=== PATIENT | male | born 2000 | race Caucasian/White ===

== ENCOUNTER 2022-02-16 18:41 | Emergency (ER) | payer BC, SELFPAY ==
--- NOTE | ~2022-02-16 | XR_ITS ---
EXAMINATION: XR chest 1V portable Exam Date/Time: 02/16/2022 19:15 CDT HISTORY: COVID + X 02/10,DIZZY,FATIGUE,NAUSEA Comparison: None available. RESULT: Lines, tubes, and devices: None. Lungs and pleura: Clear. Cardiomediastinal silhouette: Normal. Other: No acute osseous or upper abdominal finding. IMPRESSION: No acute cardiopulmonary process. Reviewed, dictated and finalized at location K.
[2022-02-16 18:45] VITALS: BP 120/67; PULSE 56; RESP 20; TEMP 37.1; O2SAT 100
--- NOTE | 2022-02-16 19:15 | ED.GENADULT ---
HPI - General Adult General Chief complaint: Dizziness Stated complaint: dizziness Time Seen by Provider: 02/16/22 19:02 Source: RN notes reviewed History of Present Illness HPI narrative: Patient presents emergency department from home for nausea. Patient states he was at work today when he began to feel nauseous like he is going to throw up states this was associated with a feeling of dizziness and fatigue. States that his dizziness is improved at this time but is still feeling nauseous as well as epigastric abdominal pain. He states he did test positive for COVID-19 with a home test on 02/10/2022. He denies any fevers or chills chest pain shortness of breath vomiting diarrhea or any other symptoms states he does not take any medications for symptom Related Data Allergies Allergy/AdvReac Type Severity Reaction Status Date / Time No Known Allergies Allergy Mild Verified 01/09/11 22:47 Review of Systems Review of Systems: Gen.: Denies fevers or chills, reports testing positive for COVID-19 Eyes: Denies eye pain or visual change ENT: Denies congestion Respiratory: Denies shortness of breath or cough CV: Denies chest pain or palpitations GI: reports epigastric abdominal pain and nausea denies vomiting or diarrhea Musculoskeletal: Denies back pain or muscle pain Neuro: Denies numbness, tingling, weakness or focal weakness reports intermittent dizziness Skin: Denies rash Except as documented, all other systems reviewed and negative [facility] Past Medical History Medical History (Updated 02/16/22 @ 21:23 by Marek Tucker DO) COVID-19 Social History Social History (Updated 02/16/22 @ 19:18 by Marek Tucker DO) Smoking status: Never smoker Exam Narrative: APPEARANCE: No acute distress, nontoxic, resting in bed EYES: EOMI HEENT: Normocephalic, atraumatic, OMM RESPIRATORY: No respiratory distress Clear to auscultation bilaterally with no rhonchi wheezing or rales. CARDIOVASCULAR: Regular rate and rhythm without murmurs rubs or gallops. ABDOMINAL: Soft, nondistended tender palpation epigastric and right upper quadrant left upper quadrant no tenderness right lower quadrant left lower quadrant no rebound or guarding MUSCULOSKELETAl: Moves all extremities. No clubbing, cyanosis or edema. NEURO: Awake and alert. Following commands, speech normal, no focal deficits SKIN:: Warm, dry. No rashes lesions or abrasions PSYCHIATRIC: Normal affect/mood, Course Course Emergency Course: Patient states that they are feeling much better at this time. States abdominal pain has resolved. States that his stomach is rumbling and he is ready to eat repeat abdominal exam shows the patient's abdomen to be soft and nontender. Discussed with patient results of workup and diagnosis. Discussed need for follow-up with primary care physician, reasons to return to the emergency department in proper use of medication. Patient understands and agrees to current treatment plan Vital Signs Vital signs: Vital Signs Temperature 98.8 F 02/16/22 18:45 Pulse Rate 56 L 02/16/22 18:45 Respiratory Rate 20 02/16/22 18:45 Blood Pressure 120/67 02/16/22 18:45 Pulse Oximetry 100 02/16/22 18:45 Temperature 98.8 F 02/16/22 18:45 Pulse Rate 74 02/16/22 21:00 Respiratory Rate 20 02/16/22 18:45 Blood Pressure 110/74 02/16/22 21:00 Pulse Oximetry 100 02/16/22 18:45 Medical Decision Making Vital Signs Vital Signs: Vital Signs Temperature 98.8 F 02/16/22 18:45 Pulse Rate 56 L 02/16/22 18:45 Respiratory Rate 20 02/16/22 18:45 Blood Pressure 120/67 02/16/22 18:45 Pulse Oximetry 100 02/16/22 18:45 Temperature 98.8 F 02/16/22 18:45 Pulse Rate 74 02/16/22 21:00 Respiratory Rate 20 02/16/22 18:45 Blood Pressure 110/74 02/16/22 21:00 Pulse Oximetry 100 02/16/22 18:45 Lab Data Result diagrams: 02/16/22 19:31 02/16/22 19:31 Labs: Lab Results 02/16/22
[2022-02-16] MEDS: KETOROLAC 30 MG/ML VIAL (*BKC) IV PUSH (19:31)
[2022-02-16] MEDS: FAMOTIDINE 20 MG/2 ML VIAL IV PUSH (19:32)
[2022-02-16] MEDS: ONDANSETRON INJ 4 MG/2 ML VIAL IV PUSH (19:32)
--- NOTE | 2022-02-16 19:36 | PC.NURSE ---
pt unable to provide urine sample at this time and is declining straight cath.
[2022-02-16 19:42] LABS: Basophils Percent Auto 0.6 % (0.2-1.2); Eosinophils Percent Auto 0.6 % (0-4.4); Hematocrit 47.2 % (42.0-52.0); Hemoglobin 16.5 g/dL (14.0-18.0); Immature Granulocyte Absolute 0.01 K/mm3 (0.00-0.031); Immature Granulocyte Percent A 0.3 % (0-0.5); Lymphocytes Absolute Auto 1.58 K/mm3 (0.9-3.2); Lymphocytes Percent Auto 43.9 % (18.3-44.2); Mean Corpuscular Hemoglobin 31.1 pg (26-34); Mean Corpuscular Volume 88.9 fl (80-100); Mean Platelet Volume 10.8 fl (7.4-10.4); Monocytes Absolute Auto 0.5 K/mm3 (0.1-0.6); Monocytes Percent Auto 13.6 % (2.6-8.5); Neutrophils Absolute Auto 1.5 K/mm3 (1.3-6.7); Platelet Count Result 169 k/mm3 (150-375); Red Blood Count 5.31 M/mm3 (4.6-6.20); Red Cell Distribution Width 12.6 % (11.5-14.5); White Blood Count 3.6 K/mm3 (4.5-10.0)
[2022-02-16 19:56] LABS: Alanine Aminotransferase 16 U/L (6-50); Albumin Level 4.9 g/dL (3.7-5.6); Alkaline Phosphatase 75 U/L (58-237); Anion Gap 9 mmol/L (8-16); Aspartate Amino Transferase 31 U/L (17-59); Bilirubin,Total 0.7 mg/dL (0.2-1.3); Blood Urea Nitrogen 12 mg/dL (8-21); Calcium 9.5 mg/dL (8.9-10.7); Carbon Dioxide 24 mmol/L (22-30); Chloride 105 mmol/L (98-107); Estimated CRCL calculation 137 ml/min; Estimated Glomerular Filt Rate > 60; Glucose 98 mg/dL (65-110); Lipase 66 U/L (23-300); Potassium 4.1 mmol/L (3.4-5.0); Sodium 138 mmol/L (134-143)
[2022-02-16 20:29] LABS: Appearance Urine Clear (Clear); Bilirubin Urine Negative (Negative); Blood Urine Negative (Negative); Color Urine Yellow (Yellow); Glucose Urine UA Negative (Negative); Ketones Urine Trace mg/dL (Negative); Leukocyte Esterase Ur Negative LEU/UL (Negative); Nitrate Urine Negative (Negative); Protein Urine Negative (Negative); Specific Grav Ur 1.015 (1.001-1.035); Urobilinogen Urine 0.2 mg/dL (<2.0); pH Urine 5.5 (5.0-9.0)
[2022-02-16 20:32] LABS: Mucus Urine Moderate /lpf; RBC Urine 0-2 /hpf (0-2); WBC Urine 0-3 /hpf
[2022-02-16 20:33] LABS: Add Urine Microscopic? NO
[2022-02-16 20:57] VITALS: BP 120/82; PULSE 56
[2022-02-16 20:59] VITALS: BP 113/82; PULSE 64
[2022-02-16 21:00] VITALS: BP 110/74; PULSE 74
[2022-02-16 21:40] VITALS: BP 110/74; RESP 20; O2SAT 98
== END 2022-02-16 21:41 | disposition home or self-care (01) ==
PROVIDERS: Emergency Provider Emergency Medicine; PCP Pediatrics
DX: U07.1 COVID-19 (principal); R10.13 Epigastric pain
CPT/HCPCS: 36415; 71045; 80053; 81003; 83690; 85025; 96374; 96375; 99284; J1885; J2405

== ENCOUNTER 2022-10-20 10:52 | Emergency (ER) | payer BC, SELFPAY ==
--- NOTE | 2022-10-20 10:56 | ED.UPPEXIN ---
HPI - Extremity Injury (Upper) General Chief Complaint: Wound/Laceration Stated Complaint: rt middle finger injury Time Seen by Provider: 10/20/22 10:56 Source: patient and RN notes reviewed History of Present Illness HPI narrative: Patient is a 22-year-old male who presents to urgent care with complaints of a laceration to the right middle finger. Patient states that he cut it on a knife yesterday around 12:00 p.m.. Patient has been cleaning and using a Band-Aid. Patient states that he is up-to-date on tetanus vaccination as far as he is aware. No other acute complaints. No acute distress noted. Patient aware of the plan of care. Some parts of this dictation were generated by voice recognition software and may contain typographical and/or grammatical inaccuracies. Related Data Home Medications Medication Instructions Recorded Confirmed No Home Medications 10/20/22 10/20/22 Allergies Allergy/AdvReac Type Severity Reaction Status Date / Time No Known Allergies Allergy Mild Verified 10/20/22 11:02 Review of Systems Review of Systems: CONSTITUTIONAL: Denies fever, chills, or sweats. EYES: Denies visual changes, redness, or discharge. ENT: Denies rhinorrhea, congestion, sore throat, or otalgia. CARDIOVASCULAR: Denies chest pain, palpitations, or edema. RESPIRATORY: Denies cough or dyspnea. GASTROINTESTINAL: Denies abdominal pain, nausea, vomiting, or diarrhea. GENITOURINARY: Denies dysuria or hematuria. SKIN: Reports a laceration to the right middle finger MUSCULOSKELETAL: Denies back pain, joint pain, or myalgia. NEUROLOGIC: Denies headache, numbness, or weakness. All other systems reviewed are negative, except as documented in HPI. PMFSH Past Medical History Medical History COVID-19 Social History Social History Smoking status: Never smoker Comments At the time of my signature, I reviewed and agree with the nursing past medical, surgical, social, and family history. There is no relevant family history pertinent to the patient complaint. Exam Narrative: GENERAL: This is a well-nourished, well-developed patient, in no apparent distress. HEAD: normocephalic, atraumatic. EYES: PERRL. Sclera clear/white. Vision is grossly intact. EARS: External ears normal NOSE: External nose normal with no obvious nasal discharge, nares without redness, no rhinorrhea. THROAT: Mucous membranes moist NECK: Neck supple SKIN: 1.5 cm linear superficial laceration to the tuft of the right middle digit. Warm, intact with no suspicious lesions or rash, good texture and turgor. NEURO: awake, alert, and oriented to person, place and time. There were no obvious focal neurologic abnormalities. EXTREMITIES: No clubbing, cyanosis, or edema. Course Course Level of Care: Express Care Visit Vital Signs Vital signs: Vital Signs Temperature 99.1 F 10/20/22 11:07 Pulse Rate 70 10/20/22 11:07 Respiratory Rate 16 10/20/22 11:07 Blood Pressure 118/70 10/20/22 11:07 Pulse Oximetry 100 10/20/22 11:07 Temperature 99.1 F 10/20/22 11:07 Pulse Rate 70 10/20/22 11:07 Respiratory Rate 16 10/20/22 11:07 Blood Pressure 118/70 10/20/22 11:07 Pulse Oximetry 100 10/20/22 11:07 Reviewed MDM - Extremity Injury (Upper) MDM Narrative Medical decision making narrative: Advised patient to keep the wound clean with plain dial soap and water. Keep the wound covered especially if at risk of being soiled. May use Neosporin. Considering the wound has been open for approximately 24 hours, it cannot be closed. Where the foam metal splint for protection. Be aware signs and symptoms of infection such as redness, swelling, drainage from the area. Follow-up with your PCP within 2-5 days or for worsening symptoms or failure to improve. Patient did not wish to have Dermabond placed to the laceration. Differential
[2022-10-20 11:07] VITALS: BP 118/70; PULSE 70; RESP 16; TEMP 37.3; O2SAT 100
== END 2022-10-20 11:45 | disposition home or self-care (01) ==
PROVIDERS: Emergency Provider Nurse Practitioner Family
DX: S61.212A Laceration without foreign body of right middle finger without damage to nail, initial encounter (principal); W26.0XXA Contact with knife, initial encounter
CPT/HCPCS: 29130; 99212; G0463

== ENCOUNTER 2022-12-04 10:57 | Emergency (ER) | payer BC, SELFPAY ==
--- NOTE | ~2022-12-04 | XR_ITS ---
EXAMINATION: XR hip RT 2V w AP pelvis INDICATION: Right hip pain TECHNIQUE: AP view of the pelvis and two views of the right hip are obtained. COMPARISON: None available FINDINGS: Bone alignment is normal. There is no fracture. There are phleboliths of the left pelvis. IMPRESSION: 1. No acute osseous abnormality. Reviewed, dictated and finalized at location A.
--- NOTE | 2022-12-04 11:13 | ED.LOWEXIN ---
HPI - Extremity Injury (Lower) General Chief Complaint: Extremity Injury, Lower Stated Complaint: right hip pain Time Seen by Provider: 12/04/22 11:02 History of Present Illness HPI Narrative: 22-year-old male reports for evaluation of right hip and glutes pain for the past 4 months. Patient states the pain is worse with rotation of his torso, laying on his right side, and certain movements cause the pain to trigger. States the pain is sharp and extends into hamstrings, and anterior lateral aspect of his thigh. Patient denies inciting injury or trauma other than he can recall throwing a heavy trash bag over his shoulder using his right leg a support which may have been the start of his symptoms. He states he was evaluated by an urgent care about 1 to 2 months ago, had x-rays taken but never received a call back regarding the results of the x-rays. He denies fever, bodies, chills, back pain, IV drug use. Related Data Allergies Allergy/AdvReac Type Severity Reaction Status Date / Time No Known Allergies Allergy Mild Verified 12/04/22 11:33 Review of Systems Review of Systems: CONSTITUTIONAL: Denies fever, chills EYES: Denies visual changes, redness, or discharge. ENT: Denies rhinorrhea, congestion, sore throat, or otalgia. CARDIOVASCULAR: Denies chest pain, palpitations, or edema. RESPIRATORY: Denies cough or dyspnea. GASTROINTESTINAL: Denies abdominal pain, nausea, vomiting, or diarrhea. GENITOURINARY: Denies dysuria or hematuria. SKIN: Denies rash or itching. MUSCULOSKELETAL: See HPI NEUROLOGIC: Denies headache, numbness, dizziness, or weakness. PSYCHIATRIC: Denies anxiety or depression. PMFSH Past Medical History Medical History COVID-19 Social History Social History Smoking status: Never smoker Exam Narrative: GENERAL: Well-appearing, well-nourished, and in no acute distress. Patient resting comfortably in exam bed. He is pleasant and conversational. HEAD: Normocephalic, atraumatic. NECK: Supple. CHEST: Clear to auscultation. No respiratory distress. No wheezes rales or rhonchi HEART: Regular rate and rhythm. No murmur heard. Normal peripheral pulses. EXTREMITIES: No midline vertebral spinous tenderness, step-offs or deformities. Tenderness over the right piriformis. No tenderness to ileum or remaining pelvis. No tenderness to proximal humerus. Full range of motion of hip. Strength 5 out of 5 in lower extremities. No saddle anesthesia. Sensation intact. Patient ambulatory without ataxia. No overlying skin changes SKIN: Warm, dry, no rash. NEURO: No focal deficits. Alert and oriented x3. PSYCH: Normal mood and affect. MDM - Extremity Injury (Lower) MDM Narrative Medical decision making narrative: 22-year-old male reports for evaluation of right hip pain for the past 4 months. Exam reveals tenderness over the right piriformis. He is neurovascularly intact and ambulatory on exam. No red flag signs. X-rays of the hip obtained without acute osseous abnormality. Patient received Flexeril, Tylenol and ibuprofen with improvement in pain. His symptoms are consistent with piriformis syndrome. Advised patient to follow-up with primary care provider within the following 3 days for reevaluation. Referrals provided. Flexeril and naproxen sent to pharmacy. Strict ED return precautions provided. Patient agrees to the plan and verbalizes understanding. Vitals remained stable. He is discharged in stable condition. Medical Records Attestation: I reviewed the patient's medical records. Imaging Data Attestation: I personally reviewed and interpreted this imaging study as follows: Radiologist's impression: Impressions Hip/Pelvis X-Ray 12/04/22 11:57 IMPRESSION: 1. No acute osseous abnormality. Discharge Plan Discharge Clinical Impression: Piriformis syndrome Qualifiers: Lateralit
[2022-12-04] MEDS: CYCLOBENZAPRINE HCL 10 MG TABLET PO (11:30)
[2022-12-04] MEDS: ACETAMINOPHEN 500 MG TABLET 1000 MG PO (11:30)
[2022-12-04] MEDS: IBUPROFEN 600 MG TABLET PO (11:30)
--- NOTE | 2022-12-04 11:34 | PC.NURSE ---
Patient off unit to Radiology.
== END 2022-12-04 12:39 | disposition home or self-care (01) ==
PROVIDERS: Emergency Provider Physician Assistant
DX: G57.01 Lesion of sciatic nerve, right lower limb (principal)
CPT/HCPCS: 73502; 99283; A9270

== ENCOUNTER 2023-03-30 14:28 | Emergency (ER) | payer OTHER, BC, SELFPAY ==
--- NOTE | ~2023-03-30 | XR_ITS ---
EXAMINATION: XR finger 4th LT min 2V DATE: 03/30/2023 14:49 INDICATION: Post traumatic left fourth digit pain TECHNIQUE: Dorsal palmar, lateral and 2 oblique views of the left fourth digit were obtained COMPARISON: None FINDINGS: There is soft tissue swelling about the fourth distal phalanx with small amount of lucent gas underly ing the elevated nail consistent with a likely nailbed injury. Bone alignment is normal. No fracture. Joint spaces are normal. IMPRESSION: 1. Likely nailbed injury at the left fourth distal phalanx with no osseous abnormality. Reviewed, dictated and finalized at location A. IMPRESSION: 1. Likely nailbed injury at the left fourth distal phalanx with no osseous abno rmality.
[2023-03-30 14:29] VITALS: BP 110/56; PULSE 73; RESP 16; TEMP 37.1; O2SAT 100
[2023-03-30] MEDS: LIDOCAINE HCL 1% LOCAL INJ 10 ML VIAL INFILTRATE (16:22)
--- NOTE | 2023-03-30 16:28 | ED.GENADULT ---
HPI - General Adult General Chief complaint: Wound/Laceration Stated complaint: L 4TH FINGER INJURY Time Seen by Provider: 03/30/23 15:32 History of Present Illness HPI narrative: 22-year-old male presented the ED for evaluation of an injury to his left fourth finger. Patient was moving a beer keg and it got caught injuring his fingernail. Related Data Allergies Allergy/AdvReac Type Severity Reaction Status Date / Time No Known Allergies Allergy Mild Verified 03/30/23 15:25 Review of Systems Review of Systems: All systems reviewed & are unremarkable except as noted in HPI and below PMFSH Past Medical History Medical History COVID-19 Social History Social History Smoking status: Never smoker Exam Narrative: APPEARANCE: Well appearing, no pain, no distress, well-nourished. HEAD: normocephalic, atraumatic. EYES: PERRLA/EOMI, conjunctivae clear. NOSE: Normal no drainage EARS:TMS clear with good light reflex. THROAT: Pharynx clear, no exudate. NECK: Supple. No adenopathy, no masses. RESPIRATORY: Airway patent, respirations nonlabored. Clear to auscultation bilaterally, no rales, rhonchi, wheezing. CARDIOVASCULAR: Regular rate and rhythm without murmurs rubs or gallops. ABDOMINAL: Soft, nontender, nondistended, normal bowel sounds MUSCULOSKELETAL: Avulsion of the fingernail of the left fourth finger NEURO: Alert. Cranial nerves II through XII intact. Good gait. Good coordination SKIN: Warm, dry. Normal Color Course Course Emergency Course: 22-year-old male presented emergency department for evaluation of avulsion of his fingernail. Laceration and finger avulsion were repaired as described in the procedure note. X-ray showed no acute fracture or dislocation. Patient was updated on the results of the work-up and importance on follow-up and treatment plan for home. All questions and concerns were addressed Vital Signs Vital signs: Vital Signs Temperature 98.7 F 03/30/23 14:29 Pulse Rate 73 03/30/23 14:29 Respiratory Rate 16 03/30/23 14:29 Blood Pressure 110/56 L 03/30/23 14:29 Pulse Oximetry 100 03/30/23 14:29 Temperature 98.7 F 03/30/23 14:29 Pulse Rate 62 03/30/23 17:20 Respiratory Rate 16 03/30/23 14:29 Blood Pressure 108/57 L 03/30/23 17:20 Pulse Oximetry 99 03/30/23 17:20 Procedures Laceration Laceration 1: Site: upper extremity Side (If applicable): left Description: irregular Depth: simple, single layer Amount of anesthesia used (mL): 5 Pre-repair: wound explored, irrigated, irrigated extensively and minor debridement ====== Skin Level ====== Skin layer closed with: vicryl Size (cm): 4-0 Number of sutures: 2 Technique: simple, interrupted and other (2 sutures were used to reattach the patient's fingernail.) ====== Subcutaneous Layer ====== ====== Muscle Layer ====== ====== Tendon Layer ====== Medical Decision Making Vital Signs Vital Signs: Vital Signs Temperature 98.7 F 03/30/23 14:29 Pulse Rate 73 03/30/23 14:29 Respiratory Rate 16 03/30/23 14:29 Blood Pressure 110/56 L 03/30/23 14:29 Pulse Oximetry 100 03/30/23 14:29 Temperature 98.7 F 03/30/23 14:29 Pulse Rate 62 03/30/23 17:20 Respiratory Rate 16 03/30/23 14:29 Blood Pressure 108/57 L 03/30/23 17:20 Pulse Oximetry 99 03/30/23 17:20 Imaging Data Radiologist's impression: Impressions Finger X-Ray 03/30/23 14:50 IMPRESSION: 1. Likely nailbed injury at the left fourth distal phalanx with no osseous abnormality. Discharge Plan Discharge Clinical Impression: Avulsed fingernail Patient Disposition: Home, Self-Care Condition: Stable Instructions: Antibiotic Form, Care For Your Stitches (ED), [facility]
[2023-03-30] MEDS: CEPHALEXIN 500 MG CAPSULE PO (17:02)
[2023-03-30 17:20] VITALS: BP 108/57; PULSE 62; O2SAT 99
== END 2023-03-30 17:21 | disposition home or self-care (01) ==
PROVIDERS: Emergency Provider Emergency Medicine
DX: S61.313A Laceration without foreign body of left middle finger with damage to nail, initial encounter (principal); W45.8XXA Other foreign body or object entering through skin, initial encounter
CPT/HCPCS: 12002; 73140; 99283; A9270

== ENCOUNTER 2023-09-26 17:24 | Emergency (ER) | payer BC, SELFPAY ==
[2023-09-26 17:27] VITALS: BP 121/101; PULSE 102; RESP 20; TEMP 36.6; O2SAT 100
[2023-09-26 19:30] LABS: Influenza A QL RT-PCR Positive (Negative); Influenza B QL RT-PCR Negative (Negative); RSV RNA, RT-PCR Negative (Negative); SARS-CoV-2 RNA PCR Negative (Negative)
[2023-09-26 20:20] VITALS: BP 141/86; PULSE 81; RESP 15; TEMP 36.9; O2SAT 100
--- NOTE | 2023-09-26 20:48 | ED.GENADULT ---
[facility] - General Adult General Chief complaint: Nausea/Vomiting/Diarrhea Stated complaint: nausea, vomiting Time Seen by Provider: 09/26/23 20:16 Source: patient Mode of arrival: ambulatory Limitations: no limitations History of Present Illness HPI narrative: This is a 23-year-old male who presents to the ED with chief complaint of URI symptoms and diarrhea for the past 4 days. Reports his sister was positive for flu earlier this week and he started feeling similar symptoms. Endorses a little bit of lightheadedness that has since resolved. States he has had fevers in the 99F range. Denies syncope, chest pain, cough, vomiting, nausea, abdominal pain. Related Data Allergies Allergy/AdvReac Type Severity Reaction Status Date / Time No Known Allergies Allergy Mild Verified 03/30/23 15:25 Review of Systems Review of Systems: All systems as dictated in [facility] Past Medical History Medical History COVID-19 Social History Social History Smoking status: Never smoker Exam Narrative: GENERAL: Well-appearing, well-nourished, and in no acute distress. HEAD: Normocephalic, atraumatic. EYES: PERRLA and EOMI. ENT: Nares clear, no rhinorrhea or epistaxis. Mucous membranes moist. Oropharynx without tonsillar hypertrophy exudate or other lesions. NECK: Supple. No adenopathy or masses. CHEST: No respiratory distress. Clear to auscultation. No wheezes rales or rhonchi HEART: Regular rate and rhythm. No murmur heard. Normal peripheral pulses. ABDOMEN: Soft, nontender, nondistended, normal active bowel sounds. MSK: Normal range of motion. No edema. SKIN: Warm, dry, no rash. NEURO: Alert and oriented x3. No focal deficits. PSYCH: Normal mood and affect. Course Vital Signs Vital signs: Vital Signs Temperature 97.8 F 09/26/23 17:27 Pulse Rate 102 H 09/26/23 17:27 Respiratory Rate 20 09/26/23 17:27 Blood Pressure 121/101 H 09/26/23 17:27 Pulse Oximetry 100 09/26/23 17:27 Oxygen Delivery Room Air 09/26/23 17:27 Temperature 98.5 F 09/26/23 20:20 Pulse Rate 81 09/26/23 20:20 Respiratory Rate 15 09/26/23 20:20 Blood Pressure 141/86 H 09/26/23 20:20 Pulse Oximetry 100 09/26/23 20:20 Oxygen Delivery Room Air 09/26/23 17:27 Medical Decision Making MDM Narrative Medical decision making narrative: This is a 23-year-old male who presents to the ED with chief complaint your eye symptoms and diarrhea for the past few days. Family member positive for flu. Vitals are normal. His exam is benign. Swabs are positive for flu A as well. He is not toxic appearing on exam. Symptoms are consistent with viral syndrome. Pt will be discharged in stable condition. Return precautions given and supportive measures discussed. Pt is understanding and agreeable with plan for discharge and follow-up with PCP. Vital Signs Vital Signs: Vital Signs Temperature 97.8 F 09/26/23 17:27 Pulse Rate 102 H 09/26/23 17:27 Respiratory Rate 20 09/26/23 17:27 Blood Pressure 121/101 H 09/26/23 17:27 Pulse Oximetry 100 09/26/23 17:27 Oxygen Delivery Room Air 09/26/23 17:27 Temperature 98.5 F 09/26/23 20:20 Pulse Rate 81 09/26/23 20:20 Respiratory Rate 15 09/26/23 20:20 Blood Pressure 141/86 H 09/26/23 20:20 Pulse Oximetry 100 09/26/23 20:20 Oxygen Delivery Room Air 09/26/23 17:27 Lab Data Labs: Lab Results 09/26/23 Range/Units 17:35 Influenza A (RT-PCR) Positive A (Negative) Influenza B (RT-PCR) Negative (Negative) RSV (RT-PCR) Negative (Negative) SARS-CoV-2 RNA (RT-PCR) Negative (Negative) Discharge Plan Discharge Clinical Impression: Influenza A Patient Disposition: Home, Self-Care Condition: Stable Instructions: Antibiotic Form, Viral Syndrome (ED) Additional Instructions: Your exam today
== END 2023-09-26 21:29 | disposition home or self-care (01) ==
PROVIDERS: Physician Assistant; Emergency Provider Physician Assistant
DX: J10.1 Influenza due to other identified influenza virus with other respiratory manifestations (principal); Z20.822 Contact with and (suspected) exposure to COVID-19
CPT/HCPCS: 87637; 99283

== ENCOUNTER 2023-09-27 20:25 | Emergency (ER) | payer BC, SELFPAY ==
--- NOTE | ~2023-09-27 | XR_ITS ---
Portable chest x-ray Comparison: 02/16/2022 Clinical History: Cough Findings: Lungs are clear, without focal consolidation or pleural effusion. Cardiomediastinal silho uette is stable. Bones and soft tissues are unremarkable. Impression: Normal chest. Reviewed, dictated and finalized at [facility]. ICAL SOCIAL WORK THERAPIST Impression: Normal chest.
[2023-09-27 20:28] VITALS: BP 122/66; PULSE 74; RESP 15; TEMP 36.8; O2SAT 100
[2023-09-27 23:22] VITALS: BP 126/81; PULSE 55; RESP 19; O2SAT 100
--- NOTE | 2023-09-27 23:28 | ED.GENADULT ---
HPI - General Adult General Chief complaint: Nausea/Vomiting/Diarrhea <Prince Quinn PA-C - Last Filed: 09/28/23 01:46> Stated complaint: dehydrated <Prince Quinn PA-C - Last Filed: 09/28/23 01:46> Time Seen by Provider: 09/27/23 23:19 <Prince uQinn PA-C - Last Filed: 09/28/23 01:46> Source: patient <Prince Quinn PA-C - Last Filed: 09/28/23 01:46> Mode of arrival: ambulatory <MODESTA Sexton Last Filed: 09/28/23 01:46> Limitations: no limitations <Prince Quinn PA-C - Last Filed: 09/28/23 01:46> History of Present Illness HPI narrative: This is a 23-year-old male who presents to the ED with chief complaint of worsening flu-like symptoms. He was seen by myself yesterday and diagnosed with flu a which his family member recently had. Patient reports that he is having increasing productive cough with green sputum. Reports feeling nauseous and having increasing diarrhea. Reports feeling very lightheaded and that he might pass out. Denies full syncopal event. he has been trying to drink water but feels like it goes right through him.. Reports numerous watery stool but denies any GI bleeding symptoms. <Prince Quinn PA-C - Last Filed: 09/28/23 01:46> Related Data Allergies/adverse reactions: Allergies Allergy/AdvReac Type Severity Reaction Status Date / Time No Known Allergies Allergy Mild Verified 09/27/23 20:31 <Prince Quinn PA-C - Last Filed: 09/28/23 01:46> Review of Systems Review of Systems: All systems as dictated in HPI <Prince Quinn PA-C - Last Filed: 09/28/23 01:46> PMF Past Medical History Medical History: Medical History COVID-19 <Prince Quinn PA-C - Last Filed: 09/28/23 01:46> Social History Social History: Social History Smoking status: Never smoker <Prince Quinn PA-C - Last Filed: 09/28/23 01:46> Exam Narrative: GENERAL: Well-appearing, well-nourished, and in no acute distress. HEAD: Normocephalic, atraumatic. EYES: PERRLA and EOMI. ENT: Nares clear, no rhinorrhea or epistaxis. Mucous membranes moist. Oropharynx without tonsillar hypertrophy exudate or other lesions. NECK: Supple. No adenopathy or masses. CHEST: No respiratory distress. Clear to auscultation. No wheezes rales or rhonchi HEART: Regular rate and rhythm. No murmur heard. Normal peripheral pulses. ABDOMEN: Soft, nontender, nondistended, normal active bowel sounds. MSK: Normal range of motion. No edema. SKIN: Warm, dry, no rash. NEURO: Alert and oriented x3. No focal deficits. PSYCH: Normal mood and affect. <Prince Quinn PA-C - Last Filed: 09/28/23 01:46> Course DERMATOLOGIST MANAGING PARTNER/PA Physician Supervision For this patient encounter, I reviewed the DERMATOLOGIST MANAGING PARTNER or PA documentation, treatment plan, and medical decision making and I had [id number] time with this patient. I performed all aspects of the MDM as documented. <Gibson Salas DO - Last Filed: 09/28/23 02:11> Vital Signs Vital signs: Vital Signs Temperature 98.3 F 09/27/23 20:28 Pulse Rate 74 09/27/23 20:28 Respiratory Rate 15 09/27/23 20:28 Blood Pressure 122/66 09/27/23 20:28 Pulse Oximetry 100 09/27/23 20:28 Oxygen Delivery Room Air 09/27/23 20:28 Temperature 98.3 F 09/27/23 20:28 Pulse Rate 76 09/28/23 01:10 Respiratory Rate 12 09/28/23 01:10 Blood Pressure 121/77 09/28/23 01:10 Pulse Oximetry 99 09/28/23 01:10 Oxygen Delivery Room Air 09/27/23 20:28 <Prince Quinn PA-C - Last Filed: 09/28/23 01:46> Vital Signs Temperature 98.3 F 09/27/23 20:28 Pulse Rate 74 09/27/23 20:28 Respiratory Rate 15 09/27/23 20:28 Blood Pressure 122/66 09/27/23 20:28 Pulse Oximetry 100 09/27/23 20:28 Oxygen Delivery Room Air 09/27/23 20:28 Temperature 98.3 F 09/27/23 20:28 Pulse Rate 76
--- NOTE | 2023-09-27 23:31 | ECG_ITS ---
Measurements Intervals [place] Rate: 53 P: 62 AK: 133 QRS: 79 QRSD: 88 T: 60 QT: 431 QTc: 408 Interpretive Statements SINUS BRADYCARDIA POSSIBLE LEFT ATRIAL ENLARGEMENT [-0.1mV P WAVE IN V1/V2] POSSIBLE RIGHT VENTRICULAR CONDUCTION DELAY [RSR (QR) IN V1/V2] ABNORMAL ECG NO PREVIOUS ECG AVAILABLE FOR COMPARISON Electronically Signed On 09-28-2023 12:38:29 REFERENCE ASSISTANT by Albert La M.D.
[2023-09-27 23:33] LABS: Basophils Percent Auto 0.5 % (0.2-1.2); Eosinophils Percent Auto 0.5 % (0-4.4); Hemoglobin 15.9 g/dL (14.0-18.0); Lymphocytes Absolute Auto 2.05 K/mm3 (0.9-3.2); Lymphocytes Percent Auto 51.8 % (18.3-44.2); Mean Corpuscular HGB Conc 34.6 g/dl (32-36); Mean Corpuscular Hemoglobin 31.3 pg (26-34); Mean Corpuscular Volume 90.6 fl (80-100); Mean Platelet Volume 10.3 fl (7.4-10.4); Monocytes Absolute Auto 0.5 K/mm3 (0.1-0.6); Monocytes Percent Auto 12.9 % (2.6-8.5); Neutrophils Absolute Auto 1.4 K/mm3 (1.3-6.7); Neutrophils Percent Auto 34.3 % (45.5-73.1); Platelet Count Result 208 k/mm3 (150-375); Red Blood Count 5.08 M/mm3 (4.6-6.20); Red Cell Distribution Width 12.5 % (11.5-14.5)
[2023-09-27 23:44] LABS: Alanine Aminotransferase 77 U/L (6-50); Albumin Level 4.4 g/dL (3.5-5.1); Alkaline Phosphatase 77 U/L (38-126); Anion Gap 7 mmol/L (8-16); Aspartate Amino Transferase 104 U/L (17-59); Bilirubin,Total 0.5 mg/dL (0.2-1.3); Blood Urea Nitrogen 14 mg/dL (9-20); Calcium 9.5 mg/dL (8.4-10.2); Carbon Dioxide 26 mmol/L (22-30); Chloride 105 mmol/L (98-107); Estimated CRCL calculation 136 ml/min; Estimated Glomerular Filt Rate > 60; Glucose 98 mg/dL (65-110); Lipase 128 U/L (23-300); Potassium 4.2 mmol/L (3.4-5.0); Sodium 138 mmol/L (137-145)
[2023-09-28] MEDS: SODIUM CHLORIDE 0.9% IV 1,000 ML 999 ML IV CONT (00:01)
[2023-09-28] MEDS: ONDANSETRON INJ 4 MG/2 ML VIAL IV PUSH (00:01)
[2023-09-28 00:44] LABS: Appearance Urine Clear (Clear); Bilirubin Urine Negative (Negative); Blood Urine Negative (Negative); Color Urine Yellow (Yellow); Glucose Urine UA Negative (Negative); Ketones Urine 1+ mg/dL (Negative); Leukocyte Esterase Ur Negative LEU/UL (Negative); Nitrate Urine Negative (Negative); Protein Urine Negative (Negative); Specific Grav Ur 1.024 (1.001-1.035); pH Urine 6.5 (5.0-9.0)
[2023-09-28 00:54] LABS: Add Urine Microscopic? YES
[2023-09-28 01:10] VITALS: BP 121/77; PULSE 76; RESP 12; O2SAT 99
== END 2023-09-28 01:10 | disposition home or self-care (01) ==
PROVIDERS: Student in an Organized Health Care Education/Training Program; Emergency Provider Physician Assistant
DX: J10.00 Influenza due to other identified influenza virus with unspecified type of pneumonia (principal); Z86.16 Personal history of COVID-19
CPT/HCPCS: 36415; 71045; 80053; 81001; 83690; 85025; 93005; 96361; 96374; 99284; J2405; J7030

== ENCOUNTER 2024-03-13 08:25 | Emergency (ER) | payer BC, SELFPAY ==
--- NOTE | 2024-03-13 08:27 | ED.SKABFB ---
HPI - Skin/Abscess/Foreign Bdy General Chief complaint: Skin/Abscess/Foreign Body Stated complaint: INSECT BITES Time Seen by Provider: 03/13/24 08:26 Source: patient Mode of arrival: ambulatory Limitations: no limitations History of Present Illness HPI narrative: Major is a 23-year-old male patient presenting to the clinic today with complaints of insect bites to his right lower lateral leg and 2 small areas over the left lower anterior leg. He reports he was bitten by insects few days ago and the itching and rash around the area is getting worse. He denies any shortness of breath or chest pain. Denies any pain to the insect bite sites. He denies any fever chills. Denies being bit by a tick Related Data Home Medications Medication Instructions Recorded Confirmed clindamycin phosphate 1 % lotion 1 applic topical DIRECTED 03/13/24 03/13/24 clobetasol 0.05 % topical cream 1 applic topical DIRECTED 03/13/24 03/13/24 Allergies Allergy/AdvReac Type Severity Reaction Status Date / Time No Known Allergies Allergy Mild Verified 03/13/24 08:28 Review of Systems Review of Systems: Pertinent positives per HPI. Patient denies any fever, chills, rash, headache, visual changes, dizziness, cough, runny nose, sore throat, shortness of breath, chest pain, palpitations, nausea, vomiting, diarrhea, constipation, abdominal pain, or any urinary issues. PMFSH Past Medical History Medical History COVID-19 Social History Social History Smoking status: Never smoker Comments At the time of my signature, I reviewed and agree with the nursing past medical, surgical, social, and family history. There is no relevant family history pertinent to the patient complaint. Exam Narrative: General: Well-developed, well nourished, in no apparent distress Head: Normocephalic, atraumatic. Cardio: Regular rate and rhythm, s1 and s2 normal, no murmur appreciated. Resp: Clear to auscultation bilaterally, no rhonchi, rales, wheezing or rubs. Integumentary: [place], warm, and dry, red, raised, blistery like rash around insect bite to the right lateral lower leg and to the left lower anterior leg with mild induration. Nontender to palpation, mild erythema, itchy red rash around insect bite Course Course Emergency Course: Portions of this record may have been created with voice recognition software. Level of Care: Express Care Visit Vital Signs Vital signs: Vital signs reviewed MDM - Skin/Abscess/Foreign Bdy MDM Narrative Medical decision making narrative: At the time of visit patient is resting comfortably on the exam table. Patient appears to be nontoxic. Plan: I suspect patient has a generalized allergic reaction around insect bite. Prescription for triamcinolone cream was sent to pharmacy. Supportive measures were discussed with the patient and they voiced understanding discharge instructions and agrees to treatment plan. Return precautions reviewed Differential Diagnosis Differential diagnosis: Likely abscess of skin or subcutaneous tissue, viral exanthem, urticaria, herpes zoster, cellulitis, eczema, insect bites, impetigo and contact dermatitis Discharge Plan Discharge Clinical Impression: Insect bite Qualifiers: Encounter type: initial encounter Site of insect bite: lower leg Laterality: right Qualified Code(s): S80.861A - Insect bite (nonvenomous), right lower leg, initial encounter Patient Disposition: Home, Self-Care Condition: Stable Instructions: Antibiotic Form, Insect Bite or Sting (ED) Prescriptions: New triamcinolone acetonide 0.1 % cream 1 applic topical BID 7 Days Qty: 30 0RF No Action clobetasol 0.05 % cream 1 applic TOPICAL DIRECTED clindamycin phosphate 1 % lotion 1 applic TOPICAL DIRECTED amitriptyline 25 mg tablet 25 mg PO QHS Qty: 30
[2024-03-13 08:32] VITALS: PULSE 68; RESP 19; TEMP 36.2; O2SAT 97
== END 2024-03-13 08:42 | disposition home or self-care (01) ==
PROVIDERS: Emergency Provider Nurse Practitioner Family; PCP Emergency Medicine
DX: S80.861A Insect bite (nonvenomous), right lower leg, initial encounter (principal); W57.XXXA Bitten or stung by nonvenomous insect and other nonvenomous arthropods, initial encounter; Z86.16 Personal history of COVID-19
CPT/HCPCS: 99213; G0463